=== PATIENT | male | born 1940 | race Hispanic/Latino ===

== ENCOUNTER 2016-12-31 01:12 | Observation (INO) | payer OTHER, MEDICARE ==
[2016-12-31] MEDS ORDERED: Sodium Chloride 0.9% 1,000 ML ONE (01:26)
[2016-12-31 01:53] LABS: BASO # 0.1 K/uL (0.0-0.2); BASO % 0.8 % (0.0-2.0); EOS % 0.2 % (0.0-4.0); HEMATOCRIT 46.2 % (35.0-51.0); LYMPH # 0.3 K/uL (1.0-4.3); LYMPH % 1.8 % (20.0-40.0); MEAN CELL VOLUME 92.8 fL (80.0-94.0); MEAN CORPUSCULAR HEMOGLOBIN 32.6 pg (27.0-31.0); MEAN CORPUSCULAR HGB CONC 35.1 g/dL (33.0-37.0); MEAN PLATELET VOLUME 7.6 fL (7.2-11.7); MONO # 0.5 K/uL (0.0-0.8); MONO % 2.9 % (0.0-10.0); PLATELET COUNT 183 K/uL (130-400); WHITE BLOOD COUNT 18.4 K/uL (4.8-10.8)
[2016-12-31] MEDS: Sodium Chloride 0.9% 1,000 ML IV SCH ×5 (01:56→21:00)
[2016-12-31 02:07] LABS: ALKALINE PHOSPHATASE 74 U/L (38-126); ALT/SGPT 44 U/L (21-72); AST/SGOT 32 U/L (17-59); BILIRUBIN,TOTAL 1.1 mg/dL (0.2-1.3); BLOOD UREA NITROGEN 17 mg/dL (9-20); CALCIUM 8.8 mg/dl (8.6-10.4); CARBON DIOXIDE 27 mmol/L (22-30); CHLORIDE 99 mmol/L (98-107); GFR AFRICAN-AMERICAN > 60; GLUCOSE,RANDOM 136 mg/dL (75-110); SODIUM 140 mmol/L (132-148); TOTAL PROTEIN 8.3 g/dL (6.3-8.3)
[2016-12-31 02:10] LABS: ALB/GLOB RATIO 1.3 (1.0-2.1)
[2016-12-31 03:47] LABS: NEUTROPHIL 88 % (50-75); TOTAL CELLS COUNTED 100
--- NOTE | 2016-12-31 03:57 | C.PDOC ---
History Of Present Illness 76 year old male presents to the ER with a complaint of a sudden onset of nausea , vomiting, and yellowish orange diarrhea that began at approximately 19:30. Denies recent sick contact, fever, or abdominal pain. Time Seen by Provider: 12/31/16 01:36 Chief Complaint (Nursing): Abdominal Pain History Per: Patient History/Exam Limitations: no limitations Onset/Duration Of Symptoms: Hrs Current Symptoms Are (Timing): Still Present Radiation Of Pain To:: None Associated Symptoms: Nausea, Vomiting, Diarrhea. denies: Fever, Chills Exacerbating Factors: None Alleviating Factors: None Recent travel outside of the [place]: No Past Medical History Reviewed: Historical Data, Nursing Documentation, Vital Signs Vital Signs: Last Vital Signs Temp 100.2 F H 12/31/16 04:30 Pulse 114 H 12/31/16 04:30 Resp 18 12/31/16 04:30 BP 134/76 12/31/16 04:30 Pulse Ox 98 12/31/16 04:48 - Medical History PMH: No Chronic Diseases Surgical History: No Surg Hx Family History: States: Unknown Family Hx - Social History Hx Alcohol Use: No Hx Substance Use: No Review Of Systems Constitutional: Negative for: Fever Gastrointestinal: Positive for: Nausea, Vomiting, Diarrhea. Negative for: Abdominal Pain Physical Exam - Physical Exam Appears: Non-toxic, No Acute Distress Skin: Normal Color, Warm, Dry Head: Atraumatic, Normacephalic Oral Mucosa: Dry Chest: Symmetrical, No Tenderness Cardiovascular: Rhythm Regular (Tachycardic) Respiratory: Normal Breath Sounds, No Rales, No Rhonchi, No Wheezing Gastrointestinal/Abdominal: Bowel Sounds (Hyperactive), Soft, No Tenderness Neurological/Psych: Oriented x3, Normal Speech, Other (no focal deficits) ED Course And Treatment - Laboratory Results Result Diagrams: 12/31/16 01:51 12/31/16 01:51 O2 Sat by Pulse Oximetry: 98 (Room air) Pulse Ox Interpretation: Normal Medical Decision Making Medical Decision Making: Blood work and CXR ordered. Pepcid, IV fluids, and zofran administered. [id number] vomited once more, yellow fluids. had 1-2 loose bm while in ed. admitted to observation/medicine, discussed with Dr Bowen. Disposition Discussed With : Jagjit Bowen Doctor Will See Patient In The: Hospital - Disposition Disposition: HOSPITALIZED Condition: STABLE Forms: [facility] (Danish) - Clinical Impression Clinical Impression: Gastroenteritis, Leucocytosis - Scribe Statement The provider has reviewed the documentation as recorded by the Scribe Jarrod Brown All medical record entries made by the Scribe were at my direction and personally dictated by me. I have reviewed the chart and agree that the record accurately reflects my personal performance of the history, physical exam, medical decision making, and the department course for this patient. I have also personally directed, reviewed, and agree with the discharge instructions and disposition.
[2016-12-31] MEDS ORDERED: Belladonna-Phenobarbital PO STA (09:02)
[2016-12-31] MEDS: metroNIDAZOLE IV 500 mg/100 ml 500 MG/100 ML BAG IVPB SCH ×2 (10:06→18:07)
[2016-12-31] MEDS: Vancomycin 125 MG/5 ML SOLN (ORAL/RECTAL) PO SCH ×4 (10:58→21:53)
[2016-12-31] MEDS: Enoxaparin 40 mg Syringe SC SCH (16:04)
--- NOTE | 2016-12-31 16:21 | CP.PCM.CON ---
Review of Systems - Constitutional Constitutional: As Per HPI - EENT Eyes: absent: As Per HPI, Blind Spots, Blurred Vision, Change in Vision, Decreased Night Vision, Diplopia, Discharge, Dry Eye, Exophthalmos, Floaters, Irritation, Itchy Eyes, Loss of Peripheral Vision, Pain, Photophobia, Requires Corrective Lenses, Sees Flashes, Spots in Vision, Tunnel Vision, Other Visual Disturbances, Loss of Vision, Other Ears: absent: As Per HPI, Decreased Hearing, Ear Discharge, Ear Pain, Tinnitus, Abnormal Hearing, Disequilibrium, Dizziness, Other Nose/Mouth/Throat: absent: As Per HPI, Epistaxis, Nasal Congestion, Nasal Discharge, Nasal Obstruction, Nasal Trauma, Nose Pain, Post Nasal Drip, Sinus Pain, Sinus Pressure, Bleeding Gums, Change in Voice, Dental Pain, Dry Mouth, Dysphagia, Halitosis, Hoarsness, Lip Swelling, Mouth Lesions, Mouth Pain, Odynophagia, Sore Throat, Throat Swelling, Tongue Swelling, Facial Pain, Neck Pain, Neck Mass, Other - Cardiovascular Cardiovascular: absent: As Per HPI, Acrocyanosis, Chest Pain, Chest Pain at Rest , Chest Pain with Activity, Claudication, Diaphoresis, Dyspnea, Dyspnea on Exertion, Edema, Irregular Heart Rhythm, Pain Radiating to Arm/Neck/Jaw, Leg Edema, Leg Ulcers, Lightheadedness, Orthopnea, Palpitations, Paroxysmal Nocturnal Dyspnea, Pedal Edema, Radiating Pain, Rapid Heart Rate, Slow Heart Rate, Syncope, Other - Respiratory Respiratory: absent: As Per HPI, Cough, Dyspnea, Hemoptysis, Dyspnea on Exertion , Wheezing, Snoring, Stridor, Pain on Inspiration, Chest Congestion, Excessive Mucous Production, Change in Mucous Color, Pain with Coughing, Other - Gastrointestinal Gastrointestinal: As Per HPI - Genitourinary Genitourinary: As Per HPI - Musculoskeletal Musculoskeletal: absent: As Per HPI, Abnormal Gait, Arthralgias, Atrophy, Back Pain, Deformity, Joint Swelling, Limited Range of Motion, Loss of Height, Muscle Cramps, Muscle Weakness, Myalgias, Neck Pain, Numbness, Radiating Pain into Limb, Stiffness, Tingling, Other - Integumentary Integumentary: absent: As Per HPI, Acne, Alopecia, Bleeding Lesions, Change in Hair, Change in Nails, Change in Pigmentation, Changing Lesions, Dry Skin, Erythema, Furuncle, Hirsutism, Lesions, New Lesions, Non-Healing Lesions, Photosensitivity, Pruritus, Rash, Skin Pain, Skin Ulcer, Sores, Striae, Swelling , Unusual Bruising, Wounds, Jaundice, Other - Neurological Neurological: absent: As Per HPI, Abnormal Gait, Abnormal Hearing, Abnormal Movements, Abnormal Speech, Behavioral Changes, Burning Sensations, Confusion, Convulsions, Disequilibrium, Dizziness, Numbness, Focal Weakness, Frequent Falls , Headaches, Lack of Coordination, Loss of Vision, Memory Loss, Paresthesias, Radicular Pain, Restless Legs, Sensory Deficit, Syncope, Tingling, Tremor, Vertigo, Weakness, Other Visual Disturbances, Other - Psychiatric Psychiatric: absent: As Per HPI, Abnormal Sleep Pattern, Anhedonia, Anxiety, Auditory Hallucinations, Behavioral Changes, Change in Appetite, Change in Libido, Confusion, Depression, Difficulty Concentrating, Hallucinations, Homicidal Ideation, Hopelessness, Irritability, Memory Loss, Mood Swings, Panic Attacks, Paranoia, Suicidal Ideation, Visual Hallucinations, Tactile Hallucinations, Other - Endocrine Endocrine: absent: As Per HPI, Change in Body Appearance, Change in Libido, Cold Intolorance, Deepening of Voice, Excessive Sweating, Fatigue, Flushing, Heat Intolorance, Increase in Ring/Shoe/Hat Size, Palpitations, Polydipsia, Polyphagia, Polyuria, Other - Hematologic/Lymphatic Hematologic: absent: As Per HPI, Easy Bleeding, Easy Bruising, Lymphadenopathy, Other Past Patient History - Past Medical History & Family History Past Medical History?: No - Past Social History Smoking Status: Former Smoker - CARDIAC Hx Cardiac Disorders: No - PULMONARY Hx Respiratory Disorders: No - NEUROLOGICAL Hx Neurological Disorder: No - HEENT Hx HEENT Problems: No - RENAL Hx Chronic Kidney Disease: No - ENDOCRINE/METABOLIC Hx Endocrine Disorders: No - HEMATOLOGICAL/ONCOLOGICAL Hx Blood Disorders: No - INTEGUMENTARY Hx Dermatological Problems: No - MUSCULOSKELETAL/RHEUMATOLOGICAL Hx Musculoskeletal Disorders: No Hx Falls: No - GASTROINTESTINAL Hx Gastrointestinal Disorders: No - GENITOURINARY/GYNECOLOGICAL Hx Genitourinary Disorders: No - PSYCHIATRIC Hx Psychophysiologic Disorder: No Hx Substance Use: No - SURGICAL HISTORY Hx Surgeries: Yes Hx Herniorrhaphy: Yes (hernia repair left side 5 years ago right side 3 years ago) - ANESTHESIA Hx Anesthesia: Yes Hx Anesthesia Reactions: No Hx Malignant Hyperthermia: No Has any member of the family had a problem w/ anesthesia?: No Meds Allergies/Adverse Reactions: Allergies Allergy/AdvReac Type Severity Reaction Status Date / Time No Known Allergies Allergy Unverified 12/31/16 01:15 - Medications Medications: Current Medications Acetaminophen (Tylenol 325mg Tab) 650 mg PO Q6 PRN PRN Reason: Fever >100.4 F Last Admin: 12/31/16 10:02 Dose: 650 mg Enoxaparin Sodium (Lovenox) 40 mg SC DAILY [facility] Last Admin: 12/31/16 16:04 Dose: Not Given Sodium Chloride (Sodium Chloride 0.9%) 1,000 mls @ 100 mls/hr IV .Q10H [facility] Last Admin: 12/31/16 11:09 Dose: Not Given Sodium Chloride (Sodium Chloride 0.9%) 1,000 mls @ 100 mls/hr IV .Q10H [facility] Last Admin: 12/31/16 14:50 Dose: Not Given Metronidazole (Flagyl) 500 mg in 100 mls @ 100 mls/hr IVPB Q8H [facility] Last Admin: 12/31/16 10:06 Dose: 100 mls/hr Metoclopramide HCl (Reglan) 5 mg IVP Q6 [facility] Last Admin: 12/31/16 11:54 Dose: 5 mg Ondansetron HCl (Zofran Inj) 4 mg IVP Q6H PRN PRN Reason: Nausea/Vomiting Last Admin: 12/31/16 09:19 Dose: 4 mg Pantoprazole Sodium (Protonix Inj) 40 mg IVP Q12H [facility] Last Admin: 12/31/16 10:02 Dose: 40 mg Pneumococcal Polyvalent Vaccine (Pneumovax 23 Vaccine) 0.5 ml IM .ONCE ONE Stop: 01/02/17 10:01 Vancomycin HCl (Vancocin (Oral Or Rectal Use)) 500 mg PO QID [facility] Last Admin: 12/31/16 14:31 Dose: 500 mg Physical Exam - Constitutional Appears: Non-toxic, Cachectic, Chronically Ill - Head Exam Head Exam: ATRAUMATIC, NORMAL INSPECTION, NORMOCEPHALIC - Eye Exam Eye Exam: PERRL. absent: Scleral icterus - ENT Exam ENT Exam: Mucous Membranes Dry, Normal External Ear Exam, Normal Oropharynx - Neck Exam Neck exam: Negative for: Lymphadenopathy - Respiratory Exam Respiratory Exam: Decreased Breath Sounds, Clear to Auscultation Bilateral - Cardiovascular Exam Cardiovascular Exam: REGULAR RHYTHM, +S1, +S2 - GI/Abdominal Exam GI & Abdominal Exam: Diminished Bowel Sounds, Distended, Soft. absent: Guarding , Rebound, Rigid, Tenderness - Rectal Exam Rectal Exam: Deferred - Exam Exam: NORMAL INSPECTION - Extremities Exam Extremities exam: Positive for: pedal pulses present. Negative for: calf tenderness, pedal edema, tenderness - Back Exam Back exam: absent: CVA tenderness (L), CVA tenderness (R), paraspinal tenderness - Neurological Exam Neurological exam: Alert, CN II-XII Intact, Oriented x3, Reflexes Normal - Psychiatric Exam Psychiatric exam: Depressed - Skin Skin Exam: Dry, Intact Results - Vital Signs Recent Vital Signs: Last Vital Signs Temp 97.9 F 12/31/16 15:35 Pulse 89 12/31/16 15:35 Resp 20 12/31/16 15:35 BP 125/55 L 12/31/16 15:35 Pulse Ox 93 L 12/31/16 15:35 - Labs Result Diagrams: 12/31/16 01:51 12/31/16 01:51 Labs: Laboratory Results - last 24 hr 12/31/16 12/31/16 12/31/16 01:51 01:51 08:52 WBC 18.4 H RBC 4.97 Hgb 16.2 Hct 46.2 MCV 92.8 MCH 32.6 H MCHC 35.1 RDW 13.0 Plt Count 183 MPV 7.6 Neut % (Auto) 94.3 H Lymph % (Auto) 1.8 L Rooks % (Auto) 2.9 Eos % (Auto) 0.2 Baso % (Auto) 0.8 Neut # 17.3 H Lymph # 0.3 L Rooks # 0.5 Eos # 0.0 Baso # 0.1 Neutrophils % (Manual) 88 H Band Neutrophils % 5 H Lymphocytes % (Manual) 3 L Monocytes % (Manual) 4 Platelet Estimate Normal Sodium 140 Potassium 4.0 Chloride 99 Carbon Dioxide 27 Anion Gap 18 BUN 17 Creatinine 1.1 Est GFR ( Amer) > 60 Est GFR (Non-Af Amer) > 60 Random Glucose 136 H Calcium 8.8 Total Bilirubin 1.1 AST 32 ALT 44 Alkaline Phosphatase 74 Total Protein 8.3 Albumin 4.7 Globulin 3.6 Albumin/Globulin Ratio 1.3 Lipase 64 Stool Leukocytes, Qual Negative C. difficile Ag & Toxin 12/31/16 11:44 WBC RBC Hgb Hct MCV MCH MCHC RDW Plt Count MPV Neut % (Auto) Lymph % (Auto) Rooks % (Auto) Eos % (Auto) Baso % (Auto) Neut # Lymph # Rooks # Eos # Baso # Neutrophils % (Manual) Band Neutrophils % Lymphocytes % (Manual) Monocytes % (Manual) Platelet Estimate Sodium Potassium Chloride Carbon Dioxide Anion Gap BUN Creatinine Est GFR ( Amer) Est GFR (Non-Af Amer) Random Glucose Calcium Total Bilirubin AST ALT Alkaline Phosphatase Total Protein Albumin Globulin Albumin/Globulin Ratio Lipase Stool Leukocytes, Qual C. difficile Ag & Toxin Negative Assessment & Plan (1) Gastroenteritis Status: Acute - Assessment and Plan (Free Text) Assessment: fever leukocytosis and abd pain without findings of acute abdomen on PE will likely need CT abd/ pelvis as well as GI eval agree with empiric antibiotics await c diff titer
[2016-12-31 18:03] LABS: VENOUS BLOOD GAS BASE EXCESS -0.6 mmol/L (0.0-2.0); VENOUS BLOOD GAS PCO2 35 mmHg (40-60); VENOUS BLOOD PH 7.43 (7.32-7.43)
--- NOTE | 2016-12-31 19:08 | RAD ---
PROCEDURE: CHEST RADIOGRAPH, 1 VIEW HISTORY: cough elevated wbc COMPARISON: None available. FINDINGS: LUNGS: . Poor inspiration with low lung volumes, crowded bronchovascular markings and mild bibasilar atelectasis PLEURA: No pneumothorax or pleural fluid seen. CARDIOVASCULAR: . Heart size is within range of normal. . Aorta ectatic and uncoiled. OSSEOUS STRUCTURES: No significant abnormalities. VISUALIZED UPPER ABDOMEN: Normal. OTHER FINDINGS: None. IMPRESSION: Poor inspiration with low lung volumes, crowded bronchovascular markings and mild bibasilar atelectasis
--- NOTE | 2016-12-31 19:18 | RAD ---
HISTORY: abdom. pain COMPARISON: No prior. FINDINGS: BOWEL: No evidence of acute mechanical bowel obstruction however there are air-filled loops of small bowel and air seen throughout the colon suggesting mild ileus. BONES: Minor multilevel degenerative spondylosis of the lower thoracic and lumbar spine. . OTHER FINDINGS: None. IMPRESSION: Findings suggest mild ileus. No evidence of acute mechanical Consider followup CT scan if further evaluation is required.
[2017-01-01] MEDS: metroNIDAZOLE IV 500 mg/100 ml 500 MG/100 ML BAG IVPB SCH ×3 (00:49→18:29)
[2017-01-01] MEDS: Sodium Chloride 0.9% 1,000 ML IV SCH ×4 (01:00→21:03)
--- NOTE | 2017-01-01 02:47 | CON ---
DATE: 12/31/[address] Yamilex You to Dr Dr. Jagjit Bowen. HISTORY OF PRESENT ILLNESS: I was called for GI consultation by the admitting MD. The patient is seen and fully examined on 12/31/2016 in the presence of his and staff in the floor. The entire chart is reviewed including but not limited to the most recent lab and radiology study results, current and previous medication list, current and previous medical events, allergy to medication list as well as all the available current and the previous medical records. Case discussed at length with the staff in the floor. This is a 76-year-old male who was admitted to the hospital through the emergency room with a main complaint of episodes of nausea and vomiting, diarrhea, with abdominal pain crampy in nature and abdominal distension reported. Active bleeding. No chills or fever at the time of his admission. However, the patient subsequently developed low-grade fever at the time of my physical examination. No reported complaint of significant shortness of breath. PAST MEDICAL HISTORY: Including mainly diverticulosis diagnosed over 5 or 6 years ago by colonoscopy according to the patient's statement or more. FAMILY HISTORY: Unknown. CURRENT MEDICATIONS: None. SOCIAL HISTORY: Denies recent history of cigarette smoking or alcohol intake. ALLERGIES TO MEDICATIONS: Unclear. After being admitted to the hospital, initial blood workup showed leukocytosis of 18.24, increased blood glucose level of 136. Chest x-ray report indicative of no significant finding. PHYSICAL EXAMINATION GENERAL: A 76-year-old male. VITAL SIGNS: With low-grade temperature of 103, pulse of 104, respiratory rate 20-24 and blood pressure of 130/70. HEENT: Showed dry oral mucoid membrane. Nonicteric sclerae. LYMPH NODES: No lymphadenitis or lymphadenopathy. LUNGS: Few scattered mild rhonchi bilaterally. Breathing sounds are present. HEART: Positive S1 and S2 with increased rate. ABDOMEN: Soft with slight distention and mild generalized tenderness, but mainly in the lower quadrant areas. No mass or organomegaly. No rebound tenderness or guarding. RECTAL: The patient refused. EXTREMITIES: Without significant clubbing, cyanosis, or edema. NEUROLOGIC: No reported new neurological deficits, sensory, or motor. IMPRESSION: 1. Acute abdominal pain of sudden onset with nausea and vomiting associated with diarrhea. A probability of acute diverticulitis was raised keeping in mind the patient's leukocytosis with low-grade temperature. 2. Acute gastroenteritis, bacterial versus virus. SUGGESTIONS: 1. Agree with your plan. 2. Complete stool workup. 3. Blood culture. 4. Started Flagyl IV. 5. Vancomycin p.o. 6. Stool for C. diff. 7. Proton pump inhibitor. 8. Reglan IV. 9. Rehydration. 10. Flattened upright abdominal x-ray followed by CAT scan of the abdomen and pelvis only as needed. 11. tab one tab 3 times a day. 12. Further recommendations to follow. Thank you for letting me participate in your patient's case management. Yamilex You MD cc: Yamilex You MD
[2017-01-01 03:52] VITALS: RESP 20
--- NOTE | 2017-01-01 06:52 | PCM.SEPTIC ---
Sepsis Progress Note - Reassessment Type Date of Evaluation: 01/01/17 Time of Evaluation: 01:00 Reassessment Type: Non-invasive reassessment - Non Invasive Reassessment Were the most recent vital sign reviewed: Yes Vital Sign (Latest): Temp Pulse Resp BP Pulse Ox 98.8 F 86 20 112/64 95 01/01/17 04:32 12/31/16 23:15 12/31/16 23:15 12/31/16 23:15 12/31/16 23:15 Cardiovascular: Yes: Regular Rate, Rhythm Respiratory: Yes: Decreased Breath Sounds. No: Accessory Muscle Use, Respiratory Distress Capillary Refill: Normal (Less than 2 sec) Skin: Warm, Pale
[2017-01-01] MEDS: Vancomycin 125 MG/5 ML SOLN (ORAL/RECTAL) PO SCH ×4 (10:02→22:58)
[2017-01-01] MEDS: Enoxaparin 40 mg Syringe SC SCH (10:03)
--- NOTE | 2017-01-01 11:38 | CP.PCM.PN ---
Subjective - Date & Time of Evaluation Date of Evaluation: 01/01/17 Time of Evaluation: 09:00 - Subjective Subjective: blood c/s pending fever on /off IV rx in progress Objective - Vital Signs/Intake and Output Vital Signs (last 24 hours): Temp Pulse Resp BP Pulse Ox 98.9 F 78 20 124/67 94 L 01/01/17 07:15 01/01/17 07:15 01/01/17 07:15 01/01/17 07:15 01/01/17 07:15 Intake and Output: 01/01/17 01/01/17 06:59 18:59 Intake Total 950 Balance 950 - Medications Medications: Current Medications Acetaminophen (Tylenol 325mg Tab) 650 mg PO Q6 PRN PRN Reason: Fever >100.4 F Last Admin: 12/31/16 19:06 Dose: 650 mg Enoxaparin Sodium (Lovenox) 40 mg SC DAILY [facility] Last Admin: 01/01/17 10:03 Dose: 40 mg Sodium Chloride (Sodium Chloride 0.9%) 1,000 mls @ 100 mls/hr IV .Q10H [facility] Last Admin: 01/01/17 07:11 Dose: 100 mls/hr Metronidazole (Flagyl) 500 mg in 100 mls @ 100 mls/hr IVPB Q8H [facility] Last Admin: 01/01/17 10:03 Dose: 100 mls/hr Ceftriaxone Sodium 1 gm/ (Dextrose) 100 mls @ 50 mls/30 min IVPB Q12H [facility] Metoclopramide HCl (Reglan) 5 mg IVP Q6 [facility] Last Admin: 01/01/17 05:40 Dose: 5 mg Ondansetron HCl (Zofran Inj) 4 mg IVP Q6H PRN PRN Reason: Nausea/Vomiting Last Admin: 12/31/16 09:19 Dose: 4 mg Pantoprazole Sodium (Protonix Inj) 40 mg IVP Q12H [facility] Last Admin: 01/01/17 10:04 Dose: 40 mg Pneumococcal Polyvalent Vaccine (Pneumovax 23 Vaccine) 0.5 ml IM .ONCE ONE Stop: 01/02/17 10:01 Vancomycin HCl (Vancocin (Oral Or Rectal Use)) 500 mg PO QID [facility] Last Admin: 01/01/17 10:02 Dose: 500 mg - Labs Labs: 12/31/16 01:51 12/31/16 01:51 - Constitutional Appears: Chronically Ill - Head Exam Head Exam: NORMOCEPHALIC - Eye Exam Eye Exam: absent: Scleral icterus - ENT Exam ENT Exam: Mucous Membranes Dry - Neck Exam Neck Exam: absent: Lymphadenopathy - Respiratory Exam Respiratory Exam: Decreased Breath Sounds - Cardiovascular Exam Cardiovascular Exam: REGULAR RHYTHM - GI/Abdominal Exam GI & Abdominal Exam: Distended Assessment and Plan (1) Gastroenteritis Status: Acute - Assessment and Plan (Free Text) Assessment: c diff negative Plan: recc: GI re-eval, CT abd /pelvis cont iv antibiotics
[2017-01-01] MEDS: cefTRIAXone IV 1 gm in Dextros 50 ML IVPB SCH (11:59)
[2017-01-01 12:10] LABS: BASO % 0.3 % (0.0-2.0); EOS # 0.1 K/uL (0.0-0.7); EOS % 0.6 % (0.0-4.0); LYMPH # 0.8 K/uL (1.0-4.3); NRBC % 0.1 % (0.0-2.0)
[2017-01-01 12:19] LABS: HEMATOCRIT 36.2 % (35.0-51.0); LYMPH % 9.9 % (20.0-40.0); MEAN CELL VOLUME 93.8 fL (80.0-94.0); MEAN CORPUSCULAR HEMOGLOBIN 33.2 pg (27.0-31.0); MEAN CORPUSCULAR HGB CONC 35.4 g/dL (33.0-37.0); MEAN PLATELET VOLUME 8.1 fL (7.2-11.7); MONO # 0.5 K/uL (0.0-0.8); MONO % 6.1 % (0.0-10.0)
[2017-01-01 12:25] LABS: PLATELET COUNT 128 K/uL (130-400); WHITE BLOOD COUNT 8.4 K/uL (4.8-10.8)
[2017-01-01 12:57] LABS: EOSINOPHIL 1 % (0-4); NEUTROPHIL 75 % (50-75); TOTAL CELLS COUNTED 100
[2017-01-01 13:14] LABS: ALB/GLOB RATIO 1.5 (1.0-2.1); ALKALINE PHOSPHATASE 47 U/L (38-126); ALT/SGPT 42 U/L (21-72); AST/SGOT 33 U/L (17-59); BLOOD UREA NITROGEN 14 mg/dL (9-20); CALCIUM 7.1 mg/dl (8.6-10.4); CARBON DIOXIDE 24 mmol/L (22-30); CHLORIDE 103 mmol/L (98-107); GFR AFRICAN-AMERICAN > 60; GLUCOSE,RANDOM 92 mg/dL (75-110); PHOSPHOROUS 1.9 mg/dL (2.5-4.5); POTASSIUM 3.4 mmol/L (3.6-5.2); SODIUM 135 mmol/L (132-148); TOTAL PROTEIN 5.4 g/dL (6.3-8.3)
--- NOTE | 2017-01-01 13:33 | PN ---
LOCATION: [facility], bed A. SUBJECTIVE: This is a 76-year-old male seen and examined in rounds, appeared to be awake, alert and oriented, again with low-grade fever, treated by Tylenol intake. The patient still have some mild crampy abdominal pain with diarrhea of liquid fecal material x2 to 3 this morning. The entire chart is reviewed including but not limited to the most recent lab and radiology study results, current and the previous medication list, current and the previous medical events and the patient still have leukocytosis as per yesterday of 18.4, but normal hemoglobin and hematocrit with normal platelet count with lactic acid reported to be normal today. Stool for leukocyte is negative and C. diff is negative so far. PHYSICAL EXAMINATION: GENERAL: A 76-year-old male, awake, alert and oriented. VITAL SIGNS: Afebrile, seen in rounds with the staff in the floor with respiratory rate 20 to 22, pulse of 84 and blood pressure 118/66. HEENT: Showed pale, dry oral mucoid membrane mildly, nonicteric sclerae. LUNGS: Few scattered crepitation, decreased air entry at bases. HEART: Positive S1 and S2. ABDOMEN: Soft to slight distention and mild generalized tenderness. No mass or organomegaly. EXTREMITIES: Without edema, clubbing or cyanosis. NEUROLOGIC: No reported new neurological deficits, sensory, or motor. Had to be mentioned that yesterday, abdominal x-ray showed evidence of mild ileus. IMPRESSION: 1. Acute gastroenteritis with ileus formation. 2. Diverticulosis with possible early phases of diverticulitis with leukocytosis and low-grade fever. 3. Exacerbation of peptic ulcer disease. SUGGESTIONS: 1. Continue current management. 2. The patient for possible endoscopy when he is more stable clinically, the patient apparently decided to leave to [facility], his hometown, soon that to be discussed with admitting medically staff. Yamilex You MD cc: Yamilex You MD
[2017-01-01] MEDS ORDERED: Potassium Chloride 20 mEq ER Tab PO ONE (15:09)
--- NOTE | 2017-01-01 15:14 | CP.PCM.PN ---
Subjective - Date & Time of Evaluation Date of Evaluation: 01/01/17 Time of Evaluation: 10:00 - Subjective Subjective: PGY3 on medicine Dr. Bowen service: Pt seen and examined at bedside this morning. Pt reports improvement of his symptoms but still complains of diarrhea and abdominal pain. Pt had Tmax of 101.1 in the past 24 hours but otherwise feeling ok. Tolerating diet. Objective - Vital Signs/Intake and Output Vital Signs (last 24 hours): Temp Pulse Resp BP Pulse Ox 98.9 F 78 20 124/67 94 L 01/01/17 07:15 01/01/17 07:15 01/01/17 07:15 01/01/17 07:15 01/01/17 07:15 Intake and Output: 01/01/17 01/01/17 06:59 18:59 Intake Total 950 Balance 950 - Medications Medications: Current Medications Acetaminophen (Tylenol 325mg Tab) 650 mg PO Q6 PRN PRN Reason: Fever >100.4 F Last Admin: 12/31/16 19:06 Dose: 650 mg Enoxaparin Sodium (Lovenox) 40 mg SC DAILY [facility] Last Admin: 01/01/17 10:03 Dose: 40 mg Sodium Chloride (Sodium Chloride 0.9%) 1,000 mls @ 100 mls/hr IV .Q10H [facility] Last Admin: 01/01/17 07:11 Dose: 100 mls/hr Metronidazole (Flagyl) 500 mg in 100 mls @ 100 mls/hr IVPB Q8H [facility] Last Admin: 01/01/17 10:03 Dose: 100 mls/hr Ceftriaxone Sodium (Rocephin Iv 1 Gm Duplex) 50 mls @ 50 mls/30 min IVPB Q12H [facility] Last Admin: 01/01/17 11:59 Dose: 50 mls/30 min Metoclopramide HCl (Reglan) 5 mg IVP Q6 [facility] Last Admin: 01/01/17 11:58 Dose: 5 mg Ondansetron HCl (Zofran Inj) 4 mg IVP Q6H PRN PRN Reason: Nausea/Vomiting Last Admin: 12/31/16 09:19 Dose: 4 mg Pantoprazole Sodium (Protonix Inj) 40 mg IVP Q12H [facility] Last Admin: 01/01/17 10:04 Dose: 40 mg Pneumococcal Polyvalent Vaccine (Pneumovax 23 Vaccine) 0.5 ml IM .ONCE ONE Stop: 01/02/17 10:01 Vancomycin HCl (Vancocin (Oral Or Rectal Use)) 500 mg PO QID [facility] Last Admin: 01/01/17 13:40 Dose: 500 mg - Labs Labs: 01/01/17 11:48 01/01/17 11:48 - Constitutional Appears: Non-toxic, No Acute Distress - Head Exam Head Exam: NORMOCEPHALIC - Eye Exam Eye Exam: Normal appearance Pupil Exam: NORMAL ACCOMODATION - ENT Exam ENT Exam: Mucous Membranes Moist - Respiratory Exam Respiratory Exam: Clear to Ausculation Bilateral, NORMAL BREATHING PATTERN. absent: Wheezes - Cardiovascular Exam Cardiovascular Exam: REGULAR RHYTHM, +S1, +S2. absent: Gallop, Rubs - GI/Abdominal Exam GI & Abdominal Exam: Soft, Tenderness, Normal Bowel Sounds - Neurological Exam Neurological Exam: Alert, Awake, Oriented x3 Assessment and Plan - Assessment and Plan (Free Text) Assessment: Gastroenteritis Abdominal xray showed mild ileus but no mechanical obstruction. Flagyl and Vanco started 12/25. WBC trending down. GI Dr. Callahan and ID Dr. Lovell consulted, help appreciated. F/U cultures. Code sepsis Pt was febrile with elevated WBC on admission. VBG lactate 2.4. Flagyl and Vanco started 12/31. F/U cultures. Prophylactic measure Protonix, SCD, Lovenox. Management as per Dr. Bowen
[2017-01-02] MEDS: cefTRIAXone IV 1 gm in Dextros 50 ML IVPB SCH ×2 (01:00→12:16)
[2017-01-02] MEDS: metroNIDAZOLE IV 500 mg/100 ml 500 MG/100 ML BAG IVPB SCH ×3 (01:30→17:51)
--- NOTE | 2017-01-02 06:54 | HP ---
HISTORY OF PRESENT ILLNESS: A 76-year-old man admitted to the hospital with complaint of nausea, vomiting, diarrhea for 1 day. The patient visited twice in-laws from [facility]. Denies hemoptysis, hematemesis, melena. PHYSICAL EXAMINATION GENERAL: The patient is awake, alert, oriented. VITAL SIGNS: Temperature 98, pulse 90. HEENT: Within normal limits. NECK: Supple. CHEST: Symmetrical. HEART: Regular. ABDOMEN: Soft. EXTREMITIES: No edema. ASSESSMENT AND PLAN: The patient suffers from gastroenteritis. The patient given bedrest, supportive care, IV fluid. Jagjit Bowen MD
[2017-01-02] MEDS: Sodium Chloride 0.9% 1,000 ML IV SCH ×3 (07:00→21:56)
[2017-01-02 07:47] LABS: BASO % 0.2 % (0.0-2.0); EOS % 0.5 % (0.0-4.0); HEMATOCRIT 32.8 % (35.0-51.0); LYMPH % 11.7 % (20.0-40.0); MEAN CELL VOLUME 92.9 fL (80.0-94.0); MEAN CORPUSCULAR HGB CONC 35.5 g/dL (33.0-37.0); MEAN PLATELET VOLUME 8.2 fL (7.2-11.7); MONO # 0.7 K/uL (0.0-0.8); MONO % 8.3 % (0.0-10.0); NRBC % 0.1 % (0.0-2.0); RED CELL DISTRIBUTION WIDTH 12.9 % (11.5-14.5); WHITE BLOOD COUNT 8.6 K/uL (4.8-10.8)
[2017-01-02 08:02] LABS: ALB/GLOB RATIO 1.4 (1.0-2.1); ALKALINE PHOSPHATASE 43 U/L (38-126); ALT/SGPT 32 U/L (21-72); AST/SGOT 26 U/L (17-59); BILIRUBIN,TOTAL 0.6 mg/dL (0.2-1.3); BLOOD UREA NITROGEN 6 mg/dL (9-20); CALCIUM 7.1 mg/dl (8.6-10.4); CARBON DIOXIDE 25 mmol/L (22-30); CHLORIDE 104 mmol/L (98-107); GFR AFRICAN-AMERICAN > 60; GLUCOSE,RANDOM 96 mg/dL (75-110); MAGNESIUM 1.9 mg/dL (1.6-2.3); PHOSPHOROUS 1.6 mg/dL (2.5-4.5); POTASSIUM 3.3 mmol/L (3.6-5.2); SODIUM 135 mmol/L (132-148); TOTAL PROTEIN 4.7 g/dL (6.3-8.3)
[2017-01-02] MEDS: Enoxaparin 40 mg Syringe SC SCH (09:58)
[2017-01-02] MEDS: Vancomycin 125 MG/5 ML SOLN (ORAL/RECTAL) PO SCH ×4 (09:59→21:52)
[2017-01-02] MEDS ORDERED: Pneumococcal 23-Valent Vaccine IM ONE (10:00)
[2017-01-02] MEDS ORDERED: Influenza Vaccine 60 mcg/0.5 mL SYR (4YR UP) IM ONE (10:00)
[2017-01-02] MEDS ORDERED: Potassium Chloride 20 mEq ER Tab PO ONE (10:01)
--- NOTE | 2017-01-02 10:14 | CP.PCM.PN ---
Subjective - Date & Time of Evaluation Date of Evaluation: 01/02/17 Time of Evaluation: 10:00 - Subjective Subjective: PGY3 on medicine Dr. Bowen service: Pt seen and examined at bedside. Pt reports diarrhea better than yesterday and able to tolerate diet. Pt also complains of fever this morning, with registered temperature of 100.4. Objective - Vital Signs/Intake and Output Vital Signs (last 24 hours): Temp Pulse Resp BP Pulse Ox 100.4 F H 83 20 138/71 95 01/02/17 08:00 01/02/17 08:00 01/02/17 08:00 01/02/17 00:40 01/02/17 08:00 Intake and Output: 01/02/17 01/02/17 06:59 18:59 Intake Total 990 Balance 990 - Medications Medications: Current Medications Acetaminophen (Tylenol 325mg Tab) 650 mg PO Q6 PRN PRN Reason: Fever >100.4 F Last Admin: 12/31/16 19:06 Dose: 650 mg Enoxaparin Sodium (Lovenox) 40 mg SC DAILY [facility] Last Admin: 01/02/17 09:58 Dose: 40 mg Sodium Chloride (Sodium Chloride 0.9%) 1,000 mls @ 100 mls/hr IV .Q10H [facility] Last Admin: 01/01/17 21:03 Dose: Not Given Metronidazole (Flagyl) 500 mg in 100 mls @ 100 mls/hr IVPB Q8H [facility] Last Admin: 01/02/17 09:22 Dose: 100 mls/hr Ceftriaxone Sodium (Rocephin Iv 1 Gm Duplex) 50 mls @ 50 mls/30 min IVPB Q12H [facility] Last Admin: 01/02/17 01:00 Dose: 50 mls/30 min Metoclopramide HCl (Reglan) 5 mg IVP Q6 [facility] Last Admin: 01/02/17 06:51 Dose: Not Given Ondansetron HCl (Zofran Inj) 4 mg IVP Q6H PRN PRN Reason: Nausea/Vomiting Last Admin: 12/31/16 09:19 Dose: 4 mg Pantoprazole Sodium (Protonix Inj) 40 mg IVP Q12H [facility] Last Admin: 01/02/17 09:59 Dose: 40 mg Vancomycin HCl (Vancocin (Oral Or Rectal Use)) 500 mg PO QID [facility] Last Admin: 01/02/17 09:59 Dose: 500 mg - Labs Labs: 01/02/17 07:25 01/02/17 07:25 - Constitutional Appears: Non-toxic, No Acute Distress - Head Exam Head Exam: NORMOCEPHALIC - Eye Exam Eye Exam: Normal appearance Pupil Exam: NORMAL ACCOMODATION - ENT Exam ENT Exam: Mucous Membranes Moist - Respiratory Exam Respiratory Exam: Clear to Ausculation Bilateral, NORMAL BREATHING PATTERN. absent: Wheezes - Cardiovascular Exam Cardiovascular Exam: REGULAR RHYTHM, +S1, +S2. absent: Gallop, Rubs - GI/Abdominal Exam GI & Abdominal Exam: Soft, Normal Bowel Sounds. absent: Tenderness - Neurological Exam Neurological Exam: Alert, Awake, Oriented x3 - Psychiatric Exam Psychiatric exam: Normal Mood - Skin Skin Exam: Intact Assessment and Plan - Assessment and Plan (Free Text) Assessment: Gastroenteritis Abdominal xray showed mild ileus but no mechanical obstruction. Flagyl and Vanco started 12/25. WBC trending down. GI Dr. Callahan and ID Dr. Lovell consulted, help appreciated. FOBT+. Cultures negative for 24 hours. Pt instructed to seek GI specialist in [place] after discharge. Code sepsis Pt was febrile with elevated WBC on admission. VBG lactate 2.4. Flagyl and Vanco started 12/31. Cultures negative for 24 hours. No leukocytosis, 100.4 temperature on 01/02 AM, will observe overnight. Prophylactic measure Protonix, SCD, Lovenox. Management as per Dr. Bowen
--- NOTE | 2017-01-02 12:27 | CP.PCM.PN ---
Subjective - Date & Time of Evaluation Date of Evaluation: 01/02/17 Time of Evaluation: 07:00 - Subjective Subjective: improving Objective - Vital Signs/Intake and Output Vital Signs (last 24 hours): Temp Pulse Resp BP Pulse Ox 98.2 F 83 20 138/71 95 01/02/17 12:18 01/02/17 08:00 01/02/17 08:00 01/02/17 00:40 01/02/17 08:00 Intake and Output: 01/02/17 01/02/17 06:59 18:59 Intake Total 990 Balance 990 - Medications Medications: Current Medications Acetaminophen (Tylenol 325mg Tab) 650 mg PO Q6 PRN PRN Reason: Fever >100.4 F Last Admin: 12/31/16 19:06 Dose: 650 mg Enoxaparin Sodium (Lovenox) 40 mg SC DAILY [facility] Last Admin: 01/02/17 09:58 Dose: 40 mg Sodium Chloride (Sodium Chloride 0.9%) 1,000 mls @ 100 mls/hr IV .Q10H [facility] Last Admin: 01/02/17 07:00 Dose: Not Given Metronidazole (Flagyl) 500 mg in 100 mls @ 100 mls/hr IVPB Q8H [facility] Last Admin: 01/02/17 09:22 Dose: 100 mls/hr Ceftriaxone Sodium (Rocephin Iv 1 Gm Duplex) 50 mls @ 50 mls/30 min IVPB Q12H [facility] Last Admin: 01/02/17 12:16 Dose: 50 mls/30 min Metoclopramide HCl (Reglan) 5 mg IVP Q6 [facility] Last Admin: 01/02/17 12:17 Dose: 5 mg Ondansetron HCl (Zofran Inj) 4 mg IVP Q6H PRN PRN Reason: Nausea/Vomiting Last Admin: 12/31/16 09:19 Dose: 4 mg Pantoprazole Sodium (Protonix Inj) 40 mg IVP Q12H [facility] Last Admin: 01/02/17 09:59 Dose: 40 mg Vancomycin HCl (Vancocin (Oral Or Rectal Use)) 500 mg PO QID [facility] Last Admin: 01/02/17 09:59 Dose: 500 mg - Labs Labs: 01/02/17 07:25 01/02/17 07:25 - Constitutional Appears: Non-toxic, Chronically Ill - Eye Exam Eye Exam: PERRL - ENT Exam ENT Exam: Mucous Membranes Dry - Neck Exam Neck Exam: absent: Lymphadenopathy - Respiratory Exam Respiratory Exam: Decreased Breath Sounds - Cardiovascular Exam Cardiovascular Exam: REGULAR RHYTHM - GI/Abdominal Exam GI & Abdominal Exam: Distended, Soft - Rectal Exam Rectal Exam: Deferred - Exam Exam: NORMAL INSPECTION - Extremities Exam Extremities Exam: absent: Pedal Edema - Back Exam Back Exam: absent: CVA tenderness (L), CVA tenderness (R) - Neurological Exam Neurological Exam: Alert, Awake - Psychiatric Exam Psychiatric exam: Normal Mood Assessment and Plan (1) Gastroenteritis Status: Acute
--- NOTE | 2017-01-02 17:31 | PN ---
LOCATION: [facility], bed A. SUBJECTIVE: This is a 76-year-old male seen and examined in rounds today without significant clinical changes but with subsequent decrease of frequency of bowel movement. He is still complaining of fever on and off, somewhat tolerating oral intake well. The entire chart is reviewed including but not limited to the most recent lab and radiology study results, current and the previous medication list, current and the previous medical events with normal white blood cells but low hemoglobin 11.6, low hematocrit 32.8 with thrombocytopenia of 117 with low potassium 3.3 with low BUN and creatinine. Calcium dropped to 7.1 with phosphorous dropped to 1.6 with low albumin 2.8. Total protein is low 4.7 with stool for occult blood reported to be positive. PHYSICAL EXAMINATION: GENERAL: A 76-year-old male. VITAL SIGNS: Low-grade temperature of 100, respiratory rate 20 to 22, pulse of 80, blood pressure 132/68. HEENT: Showed pale, dry oral mucoid membrane, nonicteric sclerae. LUNGS: Few scattered crepitation, decreased air entry at bases. HEART: Positive S1 and S2. ABDOMEN: Soft to slight distention. No mass or organomegaly. No rebound tenderness or guarding. EXTREMITIES: Without edema, clubbing or cyanosis. NEUROLOGIC: No reported new neurological deficits, sensory, or motor. IMPRESSION: 1. Acute gastroenteritis, improving gradually. 2. Diverticulosis with early stage of diverticulitis and leukocytosis and low-grade temperature including diarrhea, improving gradually. 3. Peptic ulcer disease. SUGGESTIONS: 1. Continue current management. 2. Followup blood culture. 3. Continue Flagyl, the patient may benefit from vancomycin p.o. Yamilex You MD cc: Yamilex You MD
[2017-01-03] MEDS: cefTRIAXone IV 1 gm in Dextros 50 ML IVPB SCH ×2 (00:18→12:22)
[2017-01-03] MEDS: metroNIDAZOLE IV 500 mg/100 ml 500 MG/100 ML BAG IVPB SCH ×2 (01:30→10:26)
[2017-01-03 07:30] LABS: BASO % 0.4 % (0.0-2.0); EOS # 0.2 K/uL (0.0-0.7); EOS % 2.7 % (0.0-4.0); HEMATOCRIT 35.4 % (35.0-51.0); LYMPH # 1.5 K/uL (1.0-4.3); LYMPH % 25.8 % (20.0-40.0); MEAN CELL VOLUME 93.4 fL (80.0-94.0); MEAN CORPUSCULAR HEMOGLOBIN 32.3 pg (27.0-31.0); MEAN CORPUSCULAR HGB CONC 34.6 g/dL (33.0-37.0); MONO # 0.6 K/uL (0.0-0.8); MONO % 10.3 % (0.0-10.0); NRBC % 0.1 % (0.0-2.0); RED CELL DISTRIBUTION WIDTH 13.1 % (11.5-14.5); WHITE BLOOD COUNT 5.9 K/uL (4.8-10.8)
[2017-01-03 07:45] LABS: ALB/GLOB RATIO 1.3 (1.0-2.1); ALKALINE PHOSPHATASE 45 U/L (38-126); ALT/SGPT 46 U/L (21-72); AST/SGOT 42 U/L (17-59); BILIRUBIN,TOTAL 0.7 mg/dL (0.2-1.3); BLOOD UREA NITROGEN 5 mg/dL (9-20); CALCIUM 7.5 mg/dl (8.6-10.4); CARBON DIOXIDE 23 mmol/L (22-30); CHLORIDE 106 mmol/L (98-107); GFR AFRICAN-AMERICAN > 60; GLUCOSE,RANDOM 84 mg/dL (75-110); MAGNESIUM 1.9 mg/dL (1.6-2.3); PHOSPHOROUS 2.3 mg/dL (2.5-4.5); POTASSIUM 3.4 mmol/L (3.6-5.2); SODIUM 137 mmol/L (132-148)
[2017-01-03 08:53] VITALS: BP 149/83; PULSE 74; TEMP 98.4; O2SAT 95
--- NOTE | 2017-01-03 08:54 | CP.PCM.PN ---
Subjective - Date & Time of Evaluation Date of Evaluation: 01/03/17 Time of Evaluation: 09:00 - Subjective Subjective: Dr. Bowen note: Patient is a 76 year old male with no sigificant medical history is here because of nausea, vomiting, and diarrhea. Patient thinks he might have had some food poisoning but is not sure. He is feeling better and is asking to go home. Objective - Vital Signs/Intake and Output Vital Signs (last 24 hours): Temp Pulse Resp BP Pulse Ox 98.4 F 74 20 149/83 95 01/03/17 08:00 01/03/17 08:00 01/03/17 08:00 01/03/17 08:00 01/03/17 08:00 Intake and Output: 01/03/17 01/03/17 06:59 18:59 Intake Total 920 Balance 920 - Medications Medications: Current Medications Acetaminophen (Tylenol 325mg Tab) 650 mg PO Q6 PRN PRN Reason: Fever >100.4 F Last Admin: 12/31/16 19:06 Dose: 650 mg Enoxaparin Sodium (Lovenox) 40 mg SC DAILY [facility] Last Admin: 01/02/17 09:58 Dose: 40 mg Metronidazole (Flagyl) 500 mg in 100 mls @ 100 mls/hr IVPB Q8H [facility] Last Admin: 01/03/17 01:30 Dose: 100 mls/hr Ceftriaxone Sodium (Rocephin Iv 1 Gm Duplex) 50 mls @ 50 mls/30 min IVPB Q12H [facility] Last Admin: 01/03/17 00:18 Dose: 50 mls/30 min Metoclopramide HCl (Reglan) 5 mg IVP Q6 [facility] Last Admin: 01/03/17 06:15 Dose: Not Given Ondansetron HCl (Zofran Inj) 4 mg IVP Q6H PRN PRN Reason: Nausea/Vomiting Last Admin: 12/31/16 09:19 Dose: 4 mg Pantoprazole Sodium (Protonix Inj) 40 mg IVP Q12H [facility] Last Admin: 01/02/17 21:51 Dose: 40 mg Potassium Chloride (K-Dur 20 Meq Er Tab) 40 meq PO STAT [facility] Stop: 01/03/17 08:53 Vancomycin HCl (Vancocin (Oral Or Rectal Use)) 500 mg PO QID [facility] Last Admin: 01/02/17 21:52 Dose: 500 mg - Labs Labs: 01/03/17 07:12 01/03/17 07:12 - Constitutional Appears: Non-toxic, No Acute Distress - Eye Exam Eye Exam: Normal appearance - Respiratory Exam Respiratory Exam: Clear to Ausculation Bilateral. absent: Rhonchi, Wheezes - Cardiovascular Exam Cardiovascular Exam: REGULAR RHYTHM, RRR, +S1, +S2. absent: Gallop, Rubs - GI/Abdominal Exam GI & Abdominal Exam: Soft, Normal Bowel Sounds. absent: Tenderness - Extremities Exam Extremities Exam: Normal Inspection - Back Exam Back Exam: NORMAL INSPECTION - Psychiatric Exam Psychiatric exam: Normal Affect, Normal Mood Assessment and Plan - Assessment and Plan (Free Text) Assessment: Gastroenteritis 01/03: Patient was discharged today per Dr. Bowen, no PO medication. He was given a note and instructions to follow up with his PMD next week. He was given 40 meq of KDUR before leaving though. Abdominal xray showed mild ileus but no mechanical obstruction. Flagyl and Vanco started 12/25. WBC trending down. GI Dr. Callahan and ID Dr. Lovell consulted, help appreciated. FOBT+. Cultures negative for 24 hours. Pt instructed to seek GI specialist in [place] after discharge. Code sepsis Pt was febrile with elevated WBC on admission. VBG lactate 2.4. Flagyl and Vanco started 12/31. Cultures negative for 24 hours. No leukocytosis, 100.4 temperature on 01/02 AM, will observe overnight. Prophylactic measure Protonix, SCD, Lovenox. Management as per Dr. Bowen
[2017-01-03] MEDS ORDERED: Potassium Chloride 20 mEq ER Tab PO ONE (09:00)
[2017-01-03] MEDS: Sodium Chloride 0.9% 1,000 ML IV SCH (10:21)
[2017-01-03] MEDS: Enoxaparin 40 mg Syringe SC SCH (10:23)
[2017-01-03] MEDS: Vancomycin 125 MG/5 ML SOLN (ORAL/RECTAL) PO SCH ×2 (10:24→13:37)
--- NOTE | 2017-01-03 11:30 | PN ---
DATE: LOCATION: [facility], bed A. SUBJECTIVE: This 78 years old male seen and examined in rounds without significant clinical changes. Awake, alert, oriented with less bowel movement frequency. The entire chart is reviewed including but not limited to the most recent lab and radiology study results, current and the previous medication list, current and the previous medical events. Case discussed with the staff at length. Today's labs showed normal CBC with low potassium 3.4, low albumin and low creatinine, low calcium 7.5 with low phosphorus 2.3, low albumin 2.9, low total protein 5.0. His stool for occult blood reported to be positive. PHYSICAL EXAMINATION: GENERAL: A 76 years old male. Awake, alert, oriented. VITAL SIGNS: Afebrile with pulse of 70, respiratory rate 20 to 22, blood pressure 140/80. HEENT: Showed pale dry oral mucous membrane. Nonicteric sclerae. LUNGS: Few scattered crepitation. Decreased air entry at bases. HEART: Positive S1 and S2. ABDOMEN: Soft with mild generalized tenderness. No mass or organomegaly. No rebound tenderness or guarding. EXTREMITIES: Without significant clubbing, cyanosis or edema. NEUROLOGIC: No reported new neurological deficits, sensory or motor. IMPRESSION: 1. Acute gastroenteritis, slightly improving. 2. Diverticulosis with early stage diverticulitis. 3. Re-exacerbation of peptic ulcer disease. SUGGESTION: 1. Continue current management. 2. Due to the stool positive for occult blood and as the patient never had any endoscopic evaluation of the upper GI tract and his last colonoscopy more than 6 to 7 years ago, endoscopic evaluation of the GI tract before discharge home should be considered. The patient so far is undecided. 3. Further recommendation to follow. Correct any underlying electrolyte imbalance due to the patient's hypocalcemia, hypokalemia and hypophosphatemia. Yamilex You MD
[2017-01-03] MEDS ORDERED: Influenza Vaccine 60 mcg/0.5 mL SYR (4YR UP) IM ONE (13:15)
== END 2017-01-03 15:00 | disposition home or self-care (01) ==
LOC: C.ER 01:12 → C.6T 04:46
PROVIDERS: ADMIT Internal Medicine Pulmonary Disease; ATTEND Internal Medicine Pulmonary Disease
DX: K52.9 Noninfective gastroenteritis and colitis, unspecified (principal); D72.829 Elevated white blood cell count, unspecified; Z87.891 Personal history of nicotine dependence
CPT/HCPCS: 36415; 71010; 74000; 80053; 82438; 82803; 83605; 83690; 83735; 84100; 84145; 84302; 84311; 85025; 87040; 87045; 87177; 87209; 87230; 87337; 87804; 89055; 90471; 90674; 96374; 99285; C9113; G0328; G0378; J0696; J1650; J2405; J2765; J7040